=== PATIENT | male | born 1940 | race Two or more races ===

== ENCOUNTER 2017-08-03 10:02 | Observation (INO) | payer OTHER ==
[2017-08-03] MEDS: SOD CHLORIDE 0.9% 1,000 ML IV (06:00)
[2017-08-03] MEDS: CEFAZOLIN 1 GM/50 ML (PMX) 50 ML IVPB (08:00)
[~2017-08-03 10:02] MED LIST: CEFAZOLIN 1 GM INJ
[2017-08-03 12:16] LABS: ADD MAN DIFF? NO
[2017-08-03 12:23] LABS: WHITE BLOOD COUNT 4.5 10^3/ul (4.8-10.8)
[2017-08-03 12:23] LABS: BASOPHILS % 0.4 % (0.0-2.0); EOSINOPHILS # 0.3 10^3/ul (0.0-0.5); EOSINOPHILS % 5.8 % (0.0-7.0); HEMATOCRIT 37.4 % (42.0-52.0); HEMOGLOBIN 12.2 g/dl (14.0-18.0); LYMPHOCYTES # 1.6 10^3/ul (0.8-2.9); LYMPHOCYTES % 36.9 % (15.0-51.0); MEAN CORPUSCULAR HEMOGLOBIN 28.4 pg (29.0-33.0); MEAN CORPUSCULAR HGB CONC 32.6 g/dl (32.0-37.0); MEAN PLATELET VOLUME 11.4 fl (7.4-10.4); MONOCYTE # 0.3 10^3/ul (0.3-0.9); MONOCYTES % 7.2 % (0.0-11.0); NEUTROPHIL # 2.2 10^3/ul (1.6-7.5); NEUTROPHILS % 49.5 % (39.0-77.0); PLATELET COUNT 179 10^3/UL (140-415)
[2017-08-03 12:47] LABS: ANION GAP 15 (8-16)
[2017-08-03 12:48] LABS: INR 0.88; PT RATIO 0.9
[2017-08-03 12:49] LABS: PARTIAL THROMBOPLASTIN TIME 31.7 Sec (25.0-35.0)
[2017-08-03 12:59] LABS: ALANINE AMINOTRANSFERASE 22 IU/L (13-69); ALBUMIN 3.9 g/dl (3.3-4.9); ALKALINE PHOSPHATASE 89 IU/L (42-121); ASPARTATE AMINO TRANSFERASE 19 IU/L (15-46); BILIRUBIN,INDIRECT 1.2 mg/dl (0-1.1); BILIRUBIN,TOTAL 1.2 mg/dl (0.2-1.3); CARBON DIOXIDE 27 mmol/L (21-31); CHLORIDE 104 mmol/L (97-110); GLUCOSE 95 mg/dl (70-220); TOTAL PROTEIN 6.5 g/dl (6.1-8.1)
[2017-08-03 13:05] LABS: CALCIUM 8.9 mg/dl (8.4-10.2); CREATININE 0.92 mg/dl (0.61-1.24); POTASSIUM 4.3 mmol/L (3.5-5.1); SODIUM 142 mmol/L (135-144)
[2017-08-03 13:06] LABS: BLOOD UREA NITROGEN 21 mg/dl (7-20)
[2017-08-03] MEDS ORDERED: DIPHENHYDRAMINE 50 MG INJ IV (14:30)
[2017-08-03] MEDS ORDERED: HYDROmorphONE (0.2 MG/ML) 10ML SYG IV ×3 (14:30)
[2017-08-03] MEDS ORDERED: OXYCODONE/ACETAMINOPHEN (5/325) TAB PO ×2 (14:30)
[2017-08-03] MEDS ORDERED: ALBUTEROL 0.083% (NEB) 2.5 MG/3 ML AMP HHN (14:30)
[2017-08-03] MEDS ORDERED: MIDAZOLAM 1 MG/ML 2 ML INJ IV (14:30)
[2017-08-03] MEDS ORDERED: LABETALOL HCL 20MG INJ IV (14:30)
[2017-08-03] MEDS ORDERED: EPHEDrine SULFATE 50 MG/5 ML SYG IV (14:30)
[2017-08-03] MEDS ORDERED: KETOROLAC 30 MG INJ IV (14:30)
[2017-08-03] MEDS ORDERED: ONDANSETRON 4 MG INJ IV ×2 (14:30→17:00)
[2017-08-03] MEDS ORDERED: hydrALAzine 20 MG INJ IV (14:30)
[2017-08-03] MEDS ORDERED: FENTAnyl 50 MCG/ML VIAL IV ×3 (14:30)
[2017-08-03] MEDS ORDERED: MEPERIDINE 25 MG INJ IV (14:30)
[2017-08-03] MEDS ORDERED: FENTAnyl 50 MCG/ML VIAL (14:49)
[2017-08-03] MEDS ORDERED: MIDAZOLAM 1 MG/ML 2 ML INJ (14:50)
[2017-08-03] MEDS ORDERED: DOCUSATE SODIUM 100 MG CAP PO (17:00)
[2017-08-03] MEDS ORDERED: NACL 0.9% 3 ML SYG IV (17:00)
[2017-08-03] MEDS ORDERED: GLUCAGON 1 MG INJ IM (17:30)
[2017-08-03] MEDS ORDERED: DEXTROSE 50% 50 ML SYRINGE IV ×2 (17:30)
[2017-08-03] MEDS ORDERED: GLUCOSE GEL 15 GRAM TUBE PO ×2 (17:30)
[2017-08-03] MEDS ORDERED: GLUCOSE GEL 15 GRAM TUBE BUCCAL (17:30)
[2017-08-03] MEDS: INSULIN ASPART [NOVOLOG] 3 ML PEN SC ×2 (17:55→21:00)
[2017-08-03] MEDS: ATORVASTATIN 20 MG TAB PO (20:30)
[2017-08-03] MEDS: SALMETEROL/FLUTICASONE 250/50 INHA INH (20:31)
[2017-08-03] MEDS: ACCU-CHEK XX (22:24)
[2017-08-04] MEDS: morphine 2 MG INJ IV (00:13)
[2017-08-04] MEDS: ACETAMINOPHEN 325 MG TAB PO (02:10)
[2017-08-04 05:20] LABS: ADD MAN DIFF? NO
[2017-08-04 05:25] LABS: BASOPHILS % 0.3 % (0.0-2.0); EOSINOPHILS # 0.2 10^3/ul (0.0-0.5); EOSINOPHILS % 2.6 % (0.0-7.0); HEMATOCRIT 34.8 % (42.0-52.0); HEMOGLOBIN 11.4 g/dl (14.0-18.0); LYMPHOCYTES # 1.1 10^3/ul (0.8-2.9); LYMPHOCYTES % 14.8 % (15.0-51.0); MEAN CORPUSCULAR HEMOGLOBIN 28.4 pg (29.0-33.0); MEAN CORPUSCULAR HGB CONC 32.8 g/dl (32.0-37.0); MEAN CORPUSCULAR VOLUME 86.6 fl (82.0-101.0); MEAN PLATELET VOLUME 11.5 fl (7.4-10.4); MONOCYTE # 0.5 10^3/ul (0.3-0.9); MONOCYTES % 6.1 % (0.0-11.0); NEUTROPHIL # 5.7 10^3/ul (1.6-7.5); NEUTROPHILS % 75.9 % (39.0-77.0); PLATELET COUNT 181 10^3/UL (140-415); RED BLOOD COUNT 4.02 10^6/ul (4.70-6.10); RED CELL DISTRIBUTION WIDTH 12.9 % (11.5-14.5)
[2017-08-04 05:25] LABS: WHITE BLOOD COUNT 7.4 10^3/ul (4.8-10.8)
[2017-08-04 06:05] LABS: ANION GAP 14 (8-16); BLOOD UREA NITROGEN 19 mg/dl (7-20); CALCIUM 8.9 mg/dl (8.4-10.2); CARBON DIOXIDE 28 mmol/L (21-31); CHLORIDE 102 mmol/L (97-110); CREATININE 0.97 mg/dl (0.61-1.24); GLUCOSE 107 mg/dl (70-220); MAGNESIUM 1.9 mg/dl (1.7-2.5); PHOSPHORUS 3.8 mg/dl (2.5-4.9); POTASSIUM 4.4 mmol/L (3.5-5.1); SODIUM 140 mmol/L (135-144)
[2017-08-04] MEDS: INSULIN ASPART [NOVOLOG] 3 ML PEN SC ×2 (07:50→11:40)
[2017-08-04] MEDS: ASPIRIN (EC) 81 MG TAB PO (08:37)
[2017-08-04] MEDS: SALMETEROL/FLUTICASONE 250/50 INHA INH (08:38)
== END 2017-08-04 13:32 | disposition home or self-care (01) ==
LOC: SDS 10:02 → REC 16:38 → MS1 17:40
DX: K64.8 Other hemorrhoids (principal); E11.9 Type 2 diabetes mellitus without complications; I10 Essential (primary) hypertension; E78.00 Pure hypercholesterolemia, unspecified; E78.5 Hyperlipidemia, unspecified; I25.10 Atherosclerotic heart disease of native coronary artery without angina pectoris; J45.909 Unspecified asthma, uncomplicated; Z85.46 Personal history of malignant neoplasm of prostate; Z85.820 Personal history of malignant melanoma of skin; Z79.82 Long term (current) use of aspirin; Z79.84 Long term (current) use of oral hypoglycemic drugs
CPT/HCPCS: 46260; 71045; 80048; 80053; 82962; 83735; 84100; 85025; 85610; 85730; 88304; 93005